=== PATIENT | female | born 1950 ===

== ENCOUNTER 2021-12-01 21:10 | Outpatient (CLI) | payer OTHER, MEDICARE, SELFPAY | END 2021-12-01 21:11 | disposition home or self-care (01) | PROVIDERS: Visit Provider Family Medicine | DX: J90 Pleural effusion, not elsewhere classified (principal); R06.09 Other forms of dyspnea | CPT/HCPCS: A0425; A0434 ==

== ENCOUNTER 2023-03-26 15:59 | Outpatient (CLI) | payer OTHER, SELFPAY | END 2023-03-26 16:00 | disposition home or self-care (01) | LOC: AMB 03-28 11:51 | PROVIDERS: Visit Provider Student in an Organized Health Care Education/Training Program | DX: S49.92XA Unspecified injury of left shoulder and upper arm, initial encounter (principal); S59.912A Unspecified injury of left forearm, initial encounter; W01.0XXA Fall on same level from slipping, tripping and stumbling without subsequent striking against object, initial encounter; Y92.008 Other place in unspecified non-institutional (private) residence as the place of occurrence of the external cause | CPT/HCPCS: A0425; A0427 ==